=== PATIENT | male | born 1960 | race Caucasian/White ===

== ENCOUNTER → 2020-12-06 11:34 | Outpatient (CLI) | payer OTHER, SELFPAY ==
[2020-12-06 13:34] LABS: COVID19 -Nasal RAPID Negative (Negative)
== END ==
PROVIDERS: PCP Student in an Organized Health Care Education/Training Program; Visit Provider Student in an Organized Health Care Education/Training Program
DX: Z20.822 Contact with and (suspected) exposure to COVID-19 (principal)
CPT/HCPCS: 87635

== ENCOUNTER 2020-12-08 11:09 | Day surgery (SDC) | payer OTHER, SELFPAY ==
--- NOTE | 2020-12-08 | PATH_ITS ---
[facility] Accession Number: [id number] . 01 Material submitted: . PART A: colon - ASCENDING COLON POLYP X4 PART B: colon - TRANSVERSE COLON POLYP BIOPSY . 01 Clinical history: . DX COLONOSCOPY . 02 Diagnosis: A. Ascending Colon, Polyp x4, Biopsy: Tubular adenomas. . B. Transverse Colon, Polyp, Biopsy: Tubular adenoma. . MRV 12/14/2020 1148 Local . 02 Electronically signed: . Janene Schultz MD, Pathologist NPI- [id number] . 01 Gross description: . Part A: ASCENDING COLON POLYP X4: Received in formalin are 4 fragment(s) of clark, soft tissue measuring 0.2 x 0.2 x 0.2 cm to 0.5 x 0.4 x 0.4 cm submitted entirely in 1 cassette(s) Part B: TRANSVERSE COLON POLYP BIOPSY: Received in formalin are 2 fragment(s) of clark, soft tissue measuring 0.1 x 0.1 x 0.1 cm to 0.3 x 0.3 x 0.2 cm submitted entirely in 1 cassette(s) /JOVON 12/09/2020 1850 Local . 02 Pathologist provided ICD-10: D12.2, D12.3 . 02 CPT . 394120, [id number] Performed at: 01 [facility] [address] [facility], [place], [place] [id number] MD Chriss Fatima MD Phone: [phone] Performed at: 02 [facility] [address] [place], [place] [id number] MD Janene Schultz MD Phone: [phone]
--- NOTE | 2020-12-08 08:19 | PM.HP.1 ---
History of Present Illness History of Present Illness Date Patient Seen: 12/08/20 Chief complaint: DX COLONOSCOPY Narrative: 60-year-old male here for colon polyp surveillance Patient History Medical History (Updated 12/07/20 @ 13:35 by Kim Gutierrez RN) Diabetes GERD (gastroesophageal reflux disease) Hyperlipemia Hypothyroid Meds Home Medications and Allergies Home Medications Medication Instructions Recorded Confirmed Type amlodipine-benazepril 1 cap PO DAILY 12/08/20 12/08/20 History atorvastatin 40 mg PO DAILY 12/08/20 12/08/20 History insulin glargine [Lantus Solostar 34 unit SUBCUT DAILY 12/08/20 12/08/20 History U-100 Insulin] levothyroxine [Synthroid] 50 mcg PO DAILY 12/08/20 12/08/20 History metformin 1,000 mg PO BID 12/08/20 12/08/20 History omeprazole 20 mg PO DAILY 12/08/20 12/08/20 History sulfamethoxazole-trimethoprim 1 tab PO BID 12/08/20 12/08/20 History Allergies Allergy/AdvReac Type Severity Reaction Status Date / Time No Known Drug Allergies Allergy Verified 12/07/20 13:36 Exam Narrative Exam Narrative: General: Patient is obese, not in apparent distress Cardiovascular: Regular rate and rhythm, no murmurs, rubs, or gallops; no evidence of edema; no palpable abdominal aortic aneurysm Gastrointestinal: Normoactive bowel sounds, soft, nontender, nondistended, no rebound tenderness, no hepatosplenomegaly, no evidence of hernia Assessment & Plan Assessment & Plan narrative: 60-year-old male with history of colon polyps here for polyp surveillance Regarding the procedure(s), the risks and potential complications, benefits, and alternatives (including not doing the procedure) were discussed with the patient. The risks include but are not limited to bleeding, splenic injury, infection, perforation which may require surgical intervention, missed lesions, and adverse reactions to sedative medicines. After a question and answer period, the patient agreed to proceed with the procedure(s) and gives informed consent.
[2020-12-08 11:56] VITALS: BMI 32.3
[2020-12-08 12:00] VITALS: BP 116/76; PULSE 70; RESP 18; TEMP 36.6; O2SAT 99
[2020-12-08] MEDS: SODIUM CHLORIDE 0.9% 1,000 ML 70 ML IV (12:04)
--- NOTE | 2020-12-08 12:33 | P.OP.ENDO_ITS ---
Operative Date/Time/Diagnoses Date of procedure: 12/08/20 Procedure Notes Procedure in detail: Surgeon: Red Ferrari MD Procedure: Colonoscopy with polypectomy Preoperative diagnosis: Colon polyp surveillance Postoperative diagnosis: Colon polyps x5 status post polypectomy, sigmoid diverticulosis, grade 1 internal hemorrhoids Medications: Conscious sedation using 4 mg IV of Midazolam and 100 mcg IV of Fentanyl Preanesthesia Assessment An H and P was performed/updated and the Px?s ASA class is 2. The procedure was discussed in detail with the patient. The potential risks and complications including infection, bleeding, missed lesions, perforation, need for surgery in case of perforation, prolonged hospital stay, and were explained. A brief question and answer period was allotted and once all questions were answered, informed consent was obtained. The patient was brought back to the procedure room and placed on standard monitoring. The patient?s vital signs were monitored continuously throughout the entire procedure. Prior to starting, a timeout was performed to confirm the patient?s identity, allergies, medications, and procedure. Procedure in detail The patient was placed in left lateral decubitus position and once adequate sedation was obtained a EDYTA was performed. The digital rectal examination did not reveal any palpable lesions. The tip of the colonoscope was placed in the anal canal and advanced without difficulty all the way to the cecum which was identified by the appendiceal orifice and the ileocecal valve. Careful examination of all phoenix of the colon was performed with irrigation of any residual stool. In the ascending colon, there was note of a 4 mm polyp which was removed by means of cold snare. Resection and retrieval was complete with minimal bleeding. In the ascending colon, there were three 2 mm polyps which were removed by means of cold Jumbo forceps. Resection and retrieval was complete with minimal bleeding. In the transverse colon, there was a 2 mm polyp which was removed by means of cold Jumbo forceps. Resection retrieval was complete with minimal bleeding. In the sigmoid colon, there was note of multiple small diverticula. Retroflexion was performed in the rectum which revealed grade 1 internal h emorrhoids The patient tolerated the procedure well and will be brought back to the recovery area to be discharged once criteria are met. The prep was judged to be good and adequate to identify polyps less than 5 mm. The withdrawal time was 15 minutes. The total physician intraservice time was 19 minutes. Complications There were no complications and estimated blood loss was minimal. Recommendations: Resume previous diet Continue outPx medications Follow up pathology results Repeat colonoscopy in 3 years An emergency contact number was given to the patient for any complications related to the procedure
[2020-12-08] MEDS: fentaNYL 250 MCG/5 ML INJ IV (12:38)
[2020-12-08] MEDS: MIDAZOLAM 5 MG/5 ML VIAL IV (12:39)
[2020-12-08 13:01] VITALS: BP 96/60; PULSE 62; RESP 12; TEMP 36.3; O2SAT 96
[2020-12-08 13:06] VITALS: BP 94/57; PULSE 64; RESP 12; O2SAT 96
[2020-12-08 13:11] VITALS: BP 105/64; PULSE 74; RESP 16; O2SAT 100
[2020-12-08 13:16] VITALS: BP 110/74; PULSE 70; RESP 12; O2SAT 100
[2020-12-08 13:20] VITALS: BP 114/79; PULSE 68; RESP 14; TEMP 36.7; O2SAT 99
== END 2020-12-08 13:28 | disposition home or self-care (01) ==
PROVIDERS: PCP Student in an Organized Health Care Education/Training Program; Referring Provider Internal Medicine Gastroenterology; Visit Provider Internal Medicine Gastroenterology
PROC: 0DJD8ZZ Inspection of Lower Intestinal Tract, Via Natural or Artificial Opening Endoscopic (ICD-10-PCS; CPT 45378; principal; 2020-12-08 12:30)
DX: Z12.11 Encounter for screening for malignant neoplasm of colon (principal); Z86.010 Personal history of colon polyps; D12.2 Benign neoplasm of ascending colon; D12.3 Benign neoplasm of transverse colon; K57.30 Diverticulosis of large intestine without perforation or abscess without bleeding; K64.0 First degree hemorrhoids; E11.9 Type 2 diabetes mellitus without complications; K21.9 Gastro-esophageal reflux disease without esophagitis; E78.5 Hyperlipidemia, unspecified; E03.9 Hypothyroidism, unspecified; Z79.84 Long term (current) use of oral hypoglycemic drugs
CPT/HCPCS: 45385; 45380; J2250; J3010

== ENCOUNTER → 2023-07-17 10:41 | Outpatient (CLI) | payer OTHER, SELFPAY ==
--- NOTE | 2023-07-17 | DI.MRI.S_ITS ---
PROCEDURE: MR BRAIN (IAC) WWO CON INDICATIONS: Sensorineural hearing loss, bilateral TECHNIQUE: Noncontrast sagittal T1 spin echo, axial FLAIR, axial gradient echo, axial diffusion and ADC through the brain. Axial thin-slice 3D CISS, coronal TruFISP, axial T1 spin echo with fat saturation through the internal auditory canals. After the administration of contrast, thin slice axial and coronal T1 spin echo with fat saturation through the internal auditory canals, and axial and coronal and sagittal T1 spin echo with fat saturation through the brain. COMPARISON: None. FINDINGS: Image quality: This examination is limited by involuntary motion artifact. Images are repeated, with some improvement. Cerebellopontine angles: No cerebellopontine angle masses. Inner ear structures appear normally formed. No suspicious enhancement in the internal auditory canal or along the course of the 7th cranial nerve. CSF spaces: Ventricles are normal in size and shape. No extra-axial fluid collections. Basal cisterns are patent. Brain: No intracranial bleeds or mass effects. Randle-white matter interface is intact. No abnormal intracranial enhancement. Diffusion weighted images demonstrate no acute ischemic insults. Brainstem appears normal. Normal intravascular flow voids are present. Skull and face: Calvarial marrow signal is normal. Orbits appear normal. Sinuses: Moderate mucosal thickening can be seen within the right maxillary sinus. Minimal mucosal thickening can be seen elsewhere within the paranasal sinuses. No abnormal fluid is seen within the mastoid air cells. IMPRESSION: No significant abnormality is seen. Specifically, no masses or abnormal enhancement are seen within the cerebellopontine angle cisterns or within the internal auditory canals. Dictated by: Miguel A Thomas M.D. on 07/17/2023 at 11:46 Approved by: Miguel A Thomas M.D. on 07/17/2023 at 11:47
== END ==
PROVIDERS: PCP Student in an Organized Health Care Education/Training Program; Referring Provider Otolaryngology; Visit Provider Otolaryngology
DX: H91.22 Sudden idiopathic hearing loss, left ear (principal); H90.3 Sensorineural hearing loss, bilateral
CPT/HCPCS: 70553; A9579